=== PATIENT | female | born 1955 | race Hispanic/Latino ===

== ENCOUNTER 2022-11-16 15:47 | Outpatient (CLI) | payer MEDICARE | END 2022-11-16 15:48 | disposition home or self-care (01) | LOC: CSHLAB 15:47 | PROVIDERS: ATTEND Obstetrics & Gynecology | DX: Z01.818 Encounter for other preprocedural examination (principal) | CPT/HCPCS: 85027; 86850; 86900; 86901; 93005; 93010 ==

== ENCOUNTER 2022-11-17 11:30 | Day surgery (SDC) | payer MEDICARE ==
[2022-11-16 16:08] VITALS: BMI 22.6
[2022-11-16 17:18] LABS: Hemoglobin 12.5 g/dL (12.0-15.5); Mean Corpuscular Hemoglobin 31.8 pg (27.0-33.0); Mean Corpuscular Volume 90.8 fl (81.6-98.3); Mean Platelet Volume 10.3 fl (7.4-10.4); Platelet Count 297 10x3/uL (150-450); RBC Distribution Width 14.5 % (11.5-14.5); Red Blood Cell (RBC) Count 3.93 10x6/uL (3.90-5.03); White Blood Cell (WBC) Count 4.5 10x3/uL (3.5-10.5)
[2022-11-17] MEDS ORDERED: CeleCOXIB 100 MG CAP ONE (11:45)
[2022-11-17] MEDS ORDERED: Lidocaine 1% PF 5 ML VIAL ONE (12:41)
[2022-11-17] MEDS ORDERED: Dexamethasone 4 mg/ml Vial ONE (12:41)
[2022-11-17] MEDS ORDERED: Ondansetron PF 4 MG/2 ML Vial ONE (12:41)
[2022-11-17] MEDS ORDERED: fentaNYL 50 mcg/mL 1 mL Vial ONE (12:41)
[2022-11-17] MEDS ORDERED: PROPOFOL 20 ML ONE (12:41)
[2022-11-17] MEDS ORDERED: CEFAZOLIN 2 GM VIAL ONE (12:49)
== END 2022-11-17 15:30 | disposition home or self-care (01) ==
LOC: CSHSDC 11:30
PROVIDERS: ATTEND Obstetrics & Gynecology
PROC: 0U5B8ZZ Destruction of Endometrium, Via Natural or Artificial Opening Endoscopic (ICD-10-PCS; principal; 2022-11-17)
DX: N85.8 Other specified noninflammatory disorders of uterus (principal); N95.0 Postmenopausal bleeding; Z90.49 Acquired absence of other specified parts of digestive tract; Z88.6 Allergy status to analgesic agent
CPT/HCPCS: 58563; 85027; 86850; 86900; 86901; J3010; 36415; 88305; J1100; J2405; J2704